=== PATIENT | male | born 1980 | race Caucasian/White ===

== ENCOUNTER 2020-06-21 11:16 | Day surgery (SDC) | payer BC, OTHER ==
--- NOTE | 2020-06-18 11:54 | HP ---
DATE OF SURGERY: 06/21/2020 HISTORY OF PRESENT ILLNESS: The patient is a 39 year old for six to seven months had cyst or nodule on the back of his head increasing in size. He is concerned about the risk of infection and desires excision. PAST SURGICAL HISTORY: He denied any prior surgery on his scalp area there. MEDICATIONS: Triamcinolone, cyclobenzaprine, gabapentin. ALLERGIES: NKDA. FAMILY HISTORY: Negative in regards to this problem. SOCIAL HISTORY: One pack per day smoker, denies alcohol abuse. REVIEW OF SYSTEMS: Fourteen systems reviewed pertinent for as noted above. No chest pain or palpitations other systems negative or noncontributory as above and per preadmission assessment. PHYSICAL EXAMINATION: GENERAL: No acute distress. HEENT: Sclerae nonicteric. NECK: No JVD. CHEST: Equal excursion, nonlabored breathing. CVS: Regular rate and rhythm. ABDOMEN: Soft. EXTREMITIES: No significant edema. NEURO: Alert, oriented, moving extremities symmetrically. No gross motor deficits noted. SKIN: On the scalp there is a cyst or nodule in need of excision. No gross adenopathy at this point. No current drainage. PSYCH: Appropriate mood and affect. IMPRESSION: Enlarging scalp cyst or nodule in need of excision. He is worried about risk of infection, increased symptoms over time. I feel he is a candidate. Risks and benefits explained in detail including but not limited to bleeding or infection, risk of wound dehiscence possibly requiring packing, general risk of aches, pains, burning or numbness around the area. He understands what we excise likely will not recur, have benign path but otherwise there is a risk that he could get cyst or nodule on his scalp or elsewhere on his body. He understands and agrees to the planned procedure. We will proceed with excisional biopsy of scalp cyst or nodule as an outpatient under general anesthetic.
[~2020-06-21 11:16] MED LIST: Lactated Ringers 1,000 ML IV ONE; Lactated Ringers 1,000 ML IV SCH; Sensorcaine 0.25% 10 ML ONE
[2020-06-21] MEDS ORDERED: Lactated Ringers 1,000 ML IV ONE (11:53)
[2020-06-21] MEDS ORDERED: TORAdol 30 mg Injection ONE (12:55)
[2020-06-21] MEDS ORDERED: Zofran 4 MG/2 ML VIAL ONE (13:22)
[2020-06-21] MEDS ORDERED: Decadron 4 MG INJ ONE (13:22)
[2020-06-21] MEDS ORDERED: DIPRIVAN 200 MG/20 ML IV ONE (13:22)
[2020-06-21] MEDS ORDERED: Xylocaine-Mpf 2% 5 Ml Vial ONE (13:22)
[2020-06-21] MEDS ORDERED: SUBLIMAZE 100 MCG/2 ML ONE ×2 (13:22→14:02)
[2020-06-21] MEDS ORDERED: BRIDION 200MG/2ML IV ONE (13:22)
[2020-06-21] MEDS ORDERED: Zemuron 100 MG/10 ML ONE (13:22)
[2020-06-21] MEDS ORDERED: KEFZOL 1 GM ONE (13:36)
[2020-06-21] MEDS ORDERED: DILAUDID 2 MG INJECTION ONE (14:08)
[2020-06-21] MEDS ORDERED: Triple Antibiotic Ointment ONE (14:41)
[2020-06-21 15:16] VITALS: PULSE 59; O2SAT 98
[2020-06-21 16:11] VITALS: BP 136/79
--- NOTE | 2020-06-22 11:24 | OP ---
SURGERY DATE/TIME: 06/21/2020 1320 PREOPERATIVE DIAGNOSIS: Enlarging scalp cyst or nodule. POSTOPERATIVE DIAGNOSIS: Enlarging scalp cyst or nodule. PROCEDURE: Excisional biopsy of lobulated ruptured scalp cyst site (approximately 3 cm with margins). SURGEON: Dr. Scott Rollins. ANESTHESIA: General. ESTIMATED BLOOD LOSS: Minimal. INDICATIONS: As noted above. Risks and benefits explained in detail and not limited to and consent obtained. The site had been confirmed and marked in the preoperative holding area. DESCRIPTION OF PROCEDURE AND FINDINGS: The patient is taken to the operating room. General anesthesia introduced. Prepped and draped in usual sterile fashion. After official time out and no disagreement with planned procedure, a small spindle-shaped excision of skin and dissection carried down. Appeared to have a lobulated ruptured cyst site or group of cysts, this is carefully dissected off the underlying fascia and passed off. It measured about 3 cm in size. Irrigation accomplished. The patient did have pulsatile perforators deep that required some 3-0 Vicryl suture ligature. Hemostasis noted. The wound was then closed with interrupted 3-0 Vicryl, interrupted vertical mattress 3-0 Prolene, some sterile dressings applied. The patient tolerated the procedure well. There were no immediate complications. There is no family available to discuss the findings with at this time. I will see him back in the office next week.
== END 2020-06-21 16:15 | disposition home or self-care (01) ==
LOC: SDC 11:16
PROVIDERS: ATTEND Surgery
DX: L72.12 Trichodermal cyst (principal); L72.11 Pilar cyst
CPT/HCPCS: J0690; J1100; J1170; J1885; J2405; J2704; J3010; A9270-GY